=== PATIENT | female | born 1955 | race Caucasian/White ===

== ENCOUNTER → 2016-05-31 | Outpatient (CLI) | payer MEDICARE, OTHER ==
[~2016-05-31] MED LIST: ACET-1359 PO; ASC500 PO; ATOR40TA68 PO; BENA10TA48 PO; BISA10SU58 RC; CALC0.255 PO; CLOP75TA19; FAMO-18 PO; FERR325T82 PO; FLUO40CA10 PO; FOLI-49 PO; GABA300C PO; INSU100V18; ISOS30TA PO; LORA-441 PO; NITR0.4T6 SL; NPH SQ; PROP15TA; RANI150C11 PO; ROSU5TAB5; SITA50TA2; TRAM100T2 PO
--- NOTE | 2016-05-31 13:50 | RADRPT ---
PROCEDURE: US Pelvis CLINICAL INDICATION: POSTMENOPAUSAL BLEEDING TECHNIQUE: Multiple sonographic images of the pelvis were obtained utilizing a transabdominal dipti hnique. The images were reviewed on a PACS workstation. COMPARISON: None. FINDINGS: The uterus measures 8.3 x 4.5 x 5.4 cm. There is prominent endocervical fluid which limits evaluati on for endometrial thickening. Bilateral ovaries are not visualized. There are no abnormal adnexal masses. No significant pelvic free fluid is identified. IMPRESSION: Prominent endocervical fluid is noted which limits evaluation for endometrial thickening. Recommend : Repeating the pelvic ultrasound with transvaginal images and / or endometrial sampling. No fibroids are identified. Bilateral ovaries are not visualized. There are no abnormal adnexal masses. RPTAT: EE Physician Cyndee Date Time Electronically viewed and signed by Physician Cyndee on 05/31/2016 13:49 /
== END | disposition home or self-care (01) ==
LOC: U/S 11:16
PROVIDERS: ATTEND Obstetrics & Gynecology
DX: N95.0 Postmenopausal bleeding (principal)
CPT/HCPCS: 76856

== ENCOUNTER 2017-07-21 09:56 | Inpatient (IN) | END 2017-07-26 19:08 | DRG 313 ==